=== PATIENT | male | born 2000 | race Caucasian/White ===

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

== ENCOUNTER 2022-12-22 20:53 | Emergency (ER) | payer OTHER, MEDICAID, SELFPAY ==
[2022-12-22 21:07] VITALS: BMI 29.0
[2022-12-22 21:11] VITALS: BP 145/93; PULSE 99; RESP 16; TEMP 36.1; O2SAT 97
[2022-12-22 21:37] LABS: Add Manual Diff / Slide Review NO; Basophils Absolute Auto 100 /uL (0-100); Basophils Percent Auto 0.8 % (0-2); Eosinophils Absolute Auto 100 /uL (0-450); Hematocrit 47.5 % (41-53); Hemoglobin 16.3 g/dL (13.5-17.5); Lymphocytes Absolute Auto 2800 /uL (1100-4500); Lymphocytes Percent Auto 22.4 % (25-40); Mean Corpuscular HGB Conc 34.4 % (30-36); Mean Corpuscular Hemoglobin 27.3 PG (26-34); Mean Corpuscular Volume 79.2 fL (80-100); Monocytes Absolute Auto 1000 /uL (0-900); Monocytes Percent Auto 8.2 % (3-14); Neutrophils Absolute Auto 8500 /uL (1500-7000); Neutrophils Percent Auto 67.6 % (50-75); Platelet Count 249 X10^3/uL (150-400); Red Cell Distribution Width 14.1 % (11.6-14.8); White Blood Cell Count 12.6 X10^3/uL (4.5-11.0)
[2022-12-22 21:51] LABS: COVID19 -Nasal RAPID Negative (Negative)
[2022-12-22 21:59] LABS: Alanine Aminotransferase 54 IU/L (<50); Albumin 5.2 g/dL (3.5-5.0); Albumin Globulin Ratio 1.5 (1.0-2.8); Alkaline Phosphatase 71 U/L (38-126); Aspartate Aminotransferase 32 IU/L (17-59); BUN Creatinine Ratio 10.1 (6-22); Bilirubin Total 1.4 mg/dL (0.2-1.3); Blood Urea Nitrogen 8 mg/dL (9-20); Calcium 10.5 mg/dL (8.4-10.2); Carbon Dioxide 24 mmol/L (22-32); Chloride 100 mmol/L (98-107); Estimated Glomerular Filt Rate > 60 mL/min (>60); Ethanol (ETOH) < 10 mg/dL; Globulin 3.5 g/dL (1.7-4.1); Glucose 107 mg/dL (70-100); HEMOLYSIS < 15 (0-50); Potassium 3.8 mmol/L (3.4-5.1); Sodium 139 mmol/L (137-145); Total Protein 8.7 g/dL (6.3-8.2)
[2022-12-22 23:35] LABS: UR Morphine/Opiate cutoff 300 Negative (Negative); Ur Creatinine 20 (Normal); Ur Specific Gravity 1.015 (Normal); Urine Amphetamines Positive (Negative); Urine Cocaine Negative (Negative); Urine Methamphetamines Positive (Negative); Urine Tetrahydrocannabinol Negative (Negative); Urine pH 5 (Normal)
[2022-12-22 23:36] LABS: Urine Barbiturates Negative (Negative); Urine Benzodiazepines Negative (Negative); Urine MDMA Negative (Negative); Urine Methadone Negative (Negative); Urine Oxycodone Negative (Negative); Urine Phencyclidine Negative (Negative); Urine Tricyclic Antidepressant Negative (Negative)
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
[2022-12-23 08:00] VITALS: BP 154/61; PULSE 68; RESP 14; O2SAT 98
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
--- NOTE | 2022-12-23 11:00 | PC.NURSE ---
Pt reports he has to be at work at noon and can't wait for social work consult.
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
[2022-12-23 11:33] VITALS: BP 155/89; PULSE 71; RESP 17; O2SAT 97
--- NOTE | 2022-12-23 12:41 | CM.SWNOTE ---
ED BETTING AGENCY COUNTER CLERK f/u Note BETTING AGENCY COUNTER CLERK receives consult follow up call. BETTING AGENCY COUNTER CLERK calls patient and there is no answer, VM box is not set up yet. Blanca Madera, HUMAN RESOURCE ADVISOR
== END 2022-12-23 11:36 | disposition home or self-care (01) ==
PROVIDERS: Emergency Provider Emergency Medicine; Family Provider Family Medicine; PCP Family Medicine
DX: Z59.819 Housing instability, housed unspecified (principal); R07.9 Chest pain, unspecified; Z20.822 Contact with and (suspected) exposure to COVID-19
CPT/HCPCS: 80053; 80305; 80320; 81003; 85025; 87635; 93005; 99284; C9803